=== PATIENT | female | born 1990 | race African-American/Black ===

== ENCOUNTER 2017-12-31 08:46 | Emergency (ER) | payer OTHER ==
[~2017-12-31] VITALS: Ht 154.9 cm; Wt 103.9 kg
[2017-12-31] MEDS ORDERED: IBUPROFEN600 M1 PO (09:08)
--- NOTE | 2017-12-31 09:13 | Emergency Room Report ---
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 She reports she feels drowsy but not nauseated, she denies numbness tingling weakness, blurred vision, vomiting She reports she takes no regular medicines and has no medical problems, however she reports is the worst headache that she has ever felt in her life Allergies: Coded Allergies: No Known Allergies (Unverified , 12/31/17) Patient History Past Medical History: see triage record Social History: Denies: smoking Reviewed Nursing Documentation: PMH: Agreed; PSxH: Agreed Nursing Documentation-PMH Past Medical History: No Stated History Review of Systems All Other Systems: negative except mentioned in HPI Physical Exam Vital Signs Date Time Temp Pulse Resp B/P (MAP) Pulse Ox O2 Delivery O2 Flow Rate FiO2 12/31/17 08:53 97.9 68 20 143/100 99 Room Air 97.9 Sp02 EP Interpretation: reviewed, normal General Appearance: no apparent distress, alert, non-toxic Head: normocephalic, atraumatic - +2 cm x 3 cm frontal superior forehead contusion Eyes: bilateral eye normal inspection, bilateral eye PERRL, bilateral eye EOMI ENT: normal ENT inspection, hearing grossly normal, normal pharynx, no angioedema, normal voice, moist mucus membranes Neck: normal inspection, full range of motion, supple, supple/symm/no masses Respiratory: chest non-tender, lungs clear, normal breath sounds, chest symmetrical, palpation of chest normal Cardiovascular #1: normal peripheral pulses, regular rate, rhythm Cardiovascular #2: 2+ radial (R), 2+ radial (L) Gastrointestinal: normal inspection, non tender, soft, no mass, no guarding, no rebound Rectal: deferred Genitourinary: normal inspection, no CVA tenderness Musculoskeletal: back normal, gait/station normal, normal range of motion, non- tender, no calf tenderness Neurologic: alert, responsive, 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 III-XII nml as tested, motor strength/tone normal, sensory intact, speech normal Psychiatric: judgement/insight normal, memory normal, mood/affect normal, no suicidal/homicidal ideation Skin: normal color, no rash, warm/dry, normal turgor Lymphatic: no adenopathy Medical Decision Making Diagnostic Impression: Primary Impression: Acute head injury CT/MRI/US Diagnostic Results CT/MRI/US Diagnostic Results : Imaging Test Ordered: head ct Impression normal Last Vital Signs Date Time Temp Pulse Resp B/P (MAP) Pulse Ox O2 Delivery O2 Flow Rate FiO2 12/31/17 08:53 97.9 68 20 143/100 99 Room Air 97.9 Status: unchanged Disposition: HOME, SELF-CARE Condition: Stable Scripts Ibuprofen (Ibuprofen) 600 Mg Tablet 600 MG PO TID, #10 TAB Prov: CLARENCE BONILLA M.D 12/31/17 Departure Forms: Return to Work Return to Work in (Days): 1 Patient Instructions: Contusion, [id number] CLARENCE BONILLA M.D Dec 31, 2017 09:13
[2017-12-31] MEDS ORDERED: Acetaminophen 500mg (ES) tab ORAL ONE (09:15)
[2017-12-31 09:19] VITALS: BP 143/100
--- NOTE | 2017-12-31 10:11 | Diagnostic Imaging Report ---
Indication: Pain Technique: Continuous helical CT scanning of the head was performed utilizing automated exposure control without intravenous contrast material. Axial and coronal reconstructions were obtained. Comparison: None CT dose: Total DLP 1340.44 mGycm; CTDI vol 70.38 mGy Findings: There is no acute intracranial hemorrhage, mass effect or cortical edema. The ventricles, cisterns and sulci are normal for age. The posterior fossa and fourth ventricle are unremarkable. Sellar and suprasellar regions are grossly unremarkable. Visualized mastoid air cells and paranasal sinuses are unremarkable. There is minimal frontal soft tissue swelling. No depressed calvarial fracture. IMPRESSION: No evidence of acute intracranial hemorrhage, mass effect or cortical edema. MRI may be obtained for more sensitive evaluation as clinically indicated. The CT scanner at [facility] is accredited by the [employer] and the scans are performed using protocols designed to limit radiation exposure to as low as reasonably achievable to attain images of sufficient resolution adequate for diagnostic evaluation.
[2017-12-31 10:26] VITALS: BP 137/89
== END 2017-12-31 11:50 | disposition home or self-care (01) ==
LOC: EMR 10:30
DX: S00.83XA Contusion of other part of head, initial encounter (principal); W22.8XXA Striking against or struck by other objects, initial encounter; Y92.239 Unspecified place in hospital as the place of occurrence of the external cause; Y99.0 Civilian activity done for income or pay; R51 Headache
CPT/HCPCS: 70450; 99284